=== PATIENT | male | born 1945 | race Caucasian/White ===

== ENCOUNTER 2019-03-26 11:53 | Observation (INO) | payer MEDICARE, OTHER ==
[2019-03-26] MEDS ORDERED: IPRATROPIUM/ALBUTEROL 0.5-2.5 MG/3 ML AMPUL NEB ONE (12:17)
--- NOTE | 2019-03-26 12:22 | ER Document Report ---
ED Medical Screen (RME) - General Chief Complaint: Productive Cough Stated Complaint: DIFFICULTY BREATHING Time Seen by Provider: 03/26/19 12:12 Mode of Arrival: Ambulatory Information source: Patient TRAVEL OUTSIDE OF THE [place] IN LAST 30 DAYS: No - HPI Patient complains to provider of: JOSELUIS Notes: 03/26/19 12:20 Patient here with complaints of shortness of breath. Patient has a history of COPD. He is not on home oxygen. Her last several days he has had a cough and been feeling more short of breath. He was noted to be hypoxic with home health today. He denies any chest pain. No fever. Exam No distress, nontoxic-appearing. Coarse breath sounds with wheezing noted. Heart sounds normal. Plan CBC, CMP, troponin, BNP, EKG, chest x-ray, DuoNeb's. Patient was noted to be hypoxic in the mid 80s on room air in triage, he was placed on 2 L nasal cannula was noted to improve to the mid 90s. An initial examination was made on the patient as part of the triage process, and it was determined a more comprehensive evaluation was necessary. Initial labs were ordered and patient was transferred to another provider in the ED who assumed care and finished evaluation and plan. - Related Data Allergies/Adverse Reactions: No Known Allergies Allergy (Verified 03/26/19 11:53) Physical Exam - Vital signs Vitals: Temp Pulse Resp BP Pulse Ox 98.5 F 79 16 138/56 H 91 L 03/26/19 11:59 03/26/19 11:59 03/26/19 11:59 03/26/19 11:59 03/26/19 11:59 Course - Vital Signs Vital signs: Temp Pulse Resp BP Pulse Ox 98.5 F 79 16 138/56 H 91 L 03/26/19 11:59 03/26/19 11:59 03/26/19 11:59 03/26/19 11:59 03/26/19 11:59
--- NOTE | 2019-03-26 12:44 | RADIOLOGY REPORT (SQ) ---
EXAM DESCRIPTION: CHEST 2 VIEWS COMPLETED DATE/TIME: 03/26/2019 12:31 pm REASON FOR STUDY: SOB, COUGH COMPARISON: None. NUMBER OF VIEWS: Two view. TECHNIQUE: Frontal and lateral radiographic views of the chest acquired. LIMITATIONS: None. FINDINGS: LUNGS AND PLEURA: Chronic interstitial changes. No focal infiltrates, masses or pneumotho rax. No pleural effusion. Attenuated blood vessels and flattened tutu-diaphragms. MEDIASTINUM AND HILAR STRUCTURES: No masses. No contour abnormalities. HEART AND VASCULAR STRUCTURES: Heart normal in size and contour. No evidence for failure. BONES: No acute findings. Degenerative changes in the spine. HARDWARE: None in the chest. OTHER: No other significant finding. IMPRESSION: COPD. CHRONIC SCARRING. NO ACUTE RADIOGRAPHIC FINDING IN THE CHEST. TECHNICAL DOCUMENTATION: JOB ID: [id number] [employer]- All Rights Reserved Reading location - IP/workstation name: [email or web address]
[2019-03-26 13:14] LABS: HEMATOCRIT 36.1 % (37.9-51.0); HEMOGLOBIN 12.2 g/dL (13.5-17.0); MEAN CORPUSCULAR VOLUME 86 fl (80-97); WHITE BLOOD COUNT 8.8 10^3/uL (4.0-10.5)
[2019-03-26 13:15] LABS: ABSOLUTE BASOPHILS # (AUTO) 0.1 10^3/uL (0.0-0.2); ABSOLUTE EOSINOPHILS # (AUTO) 0.1 10^3/uL (0.0-0.6); ABSOLUTE LYMPHOCYTES (AUTO) 1.6 10^3/uL (0.5-4.7); ABSOLUTE MONOCYTES (AUTO) 0.8 10^3/uL (0.1-1.4); ABSOLUTE NEUT (AUTO) 6.2 10^3/uL (1.7-8.2); EOSINOPHILS % (AUTO) 1.2 % (0-6); LYMPHOCYTES % (AUTO) 18.5 % (13-45); MEAN CORPUSCULAR HGB CONC 33.7 g/dL (32.0-36.0); PLATELET COUNT 216 10^3/uL (150-450); RED CELL DISTRIBUTION WIDTH 13.7 % (11.5-14.0); SEGMENTED NEUTROPHILS % (AUTO) 70.3 % (42-78); TOTAL CELLS COUNTED % (AUTO) 100 %
[2019-03-26 13:32] LABS: ALANINE AMINOTRANSFERASE 25 U/L (21-72); ALBUMIN 3.7 g/dL (3.5-5.0); ALKALINE PHOSPHATASE 98 U/L (38-126); ANION GAP 9 (5-19); ASPARTATE AMINO TRANSFERASE 19 U/L (17-59); BILIRUBIN,DIRECT 0.3 mg/dL (0.0-0.4); BILIRUBIN,TOTAL 0.4 mg/dL (0.2-1.3); BLOOD UREA NITROGEN 14 mg/dL (7-20); CALCIUM 9.3 mg/dL (8.4-10.2); CARBON DIOXIDE 32 mmol/L (22-30); CHLORIDE 100 mmol/L (98-107); POTASSIUM 4.1 mmol/L (3.6-5.0); SODIUM 140.7 mmol/L (137-145); TOTAL PROTEIN 7.5 g/dL (6.3-8.2)
[2019-03-26 13:39] LABS: GLUCOSE 66 mg/dL (75-110)
[2019-03-26 13:44] LABS: NT PRO BNP 46 pg/mL (5-900)
[2019-03-26 13:45] LABS: TROPONIN I < 0.012 ng/mL
[2019-03-26] MEDS ORDERED: DEXAMETHASONE 4 MG TABLET PO ONE (15:34)
--- NOTE | 2019-03-26 15:42 | ER Document Report ---
ED Respiratory Problem - General Chief Complaint: Productive Cough Stated Complaint: DIFFICULTY BREATHING Time Seen by Provider: 03/26/19 12:12 Mode of Arrival: Ambulatory Information source: Patient, Relative Notes: 73-year-old male with past medical history as recorded presents today with the onset according to of 2 to 3 days of runny nose, congestion, cough, with whitish phlegm without fevers. No chest pain. No calf pain or leg swelling. History of COPD. No oxygenation required at home. Room air oxygen saturation upon arrival was 89-90. Patient was given a duo nebulizer in triage without steroids. TRAVEL OUTSIDE OF THE [place] IN LAST 30 DAYS: No - Related Data Allergies/Adverse Reactions: No Known Allergies Allergy (Verified 03/26/19 11:53) Past Medical History - General Information source: Patient - Social History Smoking Status: Never Smoker Chew tobacco use (# tins/day): No Frequency of alcohol use: None Drug Abuse: None Family History: CAD Patient has suicidal ideation: No Patient has homicidal ideation: No - Past Medical History Cardiac Medical History: Reports: Hx Hypertension Pulmonary Medical History: Reports: Hx COPD, Hx Pneumonia Endocrine Medical History: Reports: Hx Diabetes Mellitus Type 2 Renal/ Medical History: Denies: Hx Peritoneal Dialysis Review of Systems - Review of Systems Constitutional: denies: Fever EENT: Nose congestion. denies: Eye discharge, Nose discharge Cardiovascular: denies: Chest pain, Palpitations Respiratory: Cough, Short of breath, Wheezing Gastrointestinal: denies: Vomiting Genitourinary: denies: Dysuria Musculoskeletal: denies: Leg swelling Skin: Other - no hives. denies: Rash Neurological/Psychological: Other - no slurred speech -: Yes All other systems reviewed and negative Physical Exam - Vital signs Vitals: Temp Pulse Resp BP Pulse Ox 98.5 F 79 16 138/56 H 91 L 03/26/19 11:59 03/26/19 11:59 03/26/19 11:59 03/26/19 11:59 03/26/19 11:59 Notes: Reviewed vital signs and nursing note as charted by RN. CONSTITUTIONAL: Alert; confused at baseline; does follow commands appropriately HEAD: Normocephalic; atraumatic EYES: PERRL; Conjunctivae clear, sclerae non-icteric ENT: Normal nose; bilateral nonpurulent nasal rhinorrhea; moist mucous membranes; pharynx without lesions noted NECK: Supple without meningismus; non-tender; no cervical lymphadenopathy, no masses CARD: Regular rate and rhythm; no murmurs; symmetric distal pulses RESP: Normal chest excursion without splinting or tachypnea; breath sounds clear and equal bilaterally; bilateral end expiratory wheezing with scattered rhonchi without rales ABD/GI: Normal bowel sounds; non-distended; soft, non-tender BACK: The back appears normal and is non-tender to palpation EXT: Normal ROM in all joints; non-tender to palpation; no edema SKIN: No acute lesions noted NEURO: CN 2-12 intact; 5/5 bilateral upper and lower extremity strength with sensation intact to light touch PSYCH: The patient's mood and manner are appropriate. Grooming and personal hygiene are appropriate. Course - Re-evaluation Re-evalutation: Given the above history and physical examination, we will proceed with basic labs, x-ray of the chest, EKG, troponin, and reassess. Patient has no calf pain or leg swelling. Afebrile upon arrival. Low oxygenation in triage. Not on oxygen at home. 03/26/19 15:39 Labs as recorded. X-ray shows no obvious pneumonia. Wheezing is still present but improved. I will provide a one-time dose of Decadron and repeat the duo nebulizer. Normal troponin and BNP. Given that the patient is not on oxygen at home, I will admit the patient for further evaluation and treatment, to make sure that the patient is stabilized before discharge. I will hold on antibiotics at this moment. - Vital Signs Vital signs: Temp Pulse Resp BP Pulse Ox 98.5 F 79 16 138/56 H 91 L 03/26/19 11:59 03/26/19 11:59 03/26/19 11:59 03/26/19 11:59 03/26/19 11:59 - Laboratory Result Diagrams: 03/26/19 12:50 03/26/19 12:50 Laboratory results interpreted by me: 03/26/19 03/26/19 03/26/19 12:50 12:50 13:58 RBC 4.20 L Hgb 12.2 L Hct 36.1 L Carbon Dioxide 32 H Glucose 66 L POC Glucose 145 H Discharge - Discharge Clinical Impression: Wheezing, Cough, Hypoxia Condition: Fair Disposition: ADMITTED OBSERVATION Admitting Provider: Mikayla (Hospitalist) Unit Admitted: Telemetry
[2019-03-26] MEDS ORDERED: IPRATROPIUM/ALBUTEROL 0.5-2.5 MG/3 ML AMPUL NEB SCH ×2 (15:45)
[2019-03-26 16:38] LABS: ARTERIAL BLOOD BASE EXCESS 5.6 mmol/L; ARTERIAL BLOOD FIO2 2L; ARTERIAL BLOOD H2CO3 1.49 mmol/L (1.05-1.35); ARTERIAL BLOOD HCO3 31.2 mmol/L (20-24); ARTERIAL BLOOD O2 SATURATION 94.3 % (94-98); ARTERIAL BLOOD PCO2 49.4 mmHg (35-45); ARTERIAL BLOOD PH 7.42 (7.35-7.45); ARTERIAL BLOOD PO2 70.8 mmHg (80-100); ARTERIAL BLOOD TOTAL CO2 32.7 mmol/L (23-27)
--- NOTE | 2019-03-26 16:39 | PDOC H&P ---
History of Present Illness Admission Date/PCP: 03/26/19 15:52 ALLISON SINGH MD Patient complains of: SOB, cough History of Present Illness: MARIANA BHAT is a 73 year old male with a PMH of COPD not on home O2, Lewy body dementia and HTN who was brought in due to increasing SOb, productive cough and wheezing. is on bedside and she says he has been having progressive SOB since Monday associated with increaisngly productive cough with yellowish-brownish sputum. Hew was also noted to be more wheezy at home. In the ER, he was hypoxic at 89% on room air and had significant bilateral wheezes. He says he feels better after the breathing treatments and decadron. He is only oriented to person. Past Medical History Cardiac Medical History: Reports: Hypertension Pulmonary Medical History: Reports: Chronic Obstructive Pulmonary Disease (COPD), Pneumonia Endocrine Medical History: Reports: Diabetes Mellitus Type 2 Social History Smoking Status: Never Smoker Family History Family History: CAD Parental Family History Reviewed: Yes - no premature CAD Children Family History Reviewed: No Sibling(s) Family History Reviewed.: No Medication/Allergy Allergies/Adverse Reactions: No Known Allergies Allergy (Verified 03/26/19 11:53) Review of Systems All systems: reviewed and no additional remarkable complaints except as stated - as mentioned in HPI Physical Exam Vital Signs: Temp Pulse Resp BP Pulse Ox 98.5 F 79 16 138/56 H 91 L 03/26/19 11:59 03/26/19 11:59 03/26/19 11:59 03/26/19 11:59 03/26/19 11:59 Intake & Output 03/25/19 03/26/19 03/27/19 06:59 06:59 06:59 Weight 189 lb General appearance: PRESENT: mild distress Head exam: PRESENT: atraumatic, normocephalic Eye exam: PRESENT: conjunctiva pink, EOMI, PERRLA. ABSENT: scleral icterus Ear exam: PRESENT: normal external ear exam Mouth exam: PRESENT: moist, tongue midline Neck exam: ABSENT: carotid bruit, JVD, lymphadenopathy, thyromegaly Respiratory exam: PRESENT: rhonchi, wheezes. ABSENT: rales Cardiovascular exam: PRESENT: RRR. ABSENT: diastolic murmur, rubs, systolic murmur Pulses: PRESENT: normal dorsalis pedis pul GI/Abdominal exam: PRESENT: normal bowel sounds, soft. ABSENT: distended, guarding, mass, organolmegaly, rebound, tenderness Rectal exam: PRESENT: deferred Neurological exam: PRESENT: alert, awake, oriented to person, CN II-XII grossly intact. ABSENT: oriented to place, oriented to time, motor sensory deficit Results Laboratory Results: 03/26/19 12:50 03/26/19 12:50 03/26/19 03/26/19 12:50 12:50 WBC 8.8 RBC 4.20 L Hgb 12.2 L Hct 36.1 L MCV 86 MCH 29.0 MCHC 33.7 RDW 13.7 Plt Count 216 Seg Neutrophils % 70.3 Lymphocytes % 18.5 Monocytes % 9.0 Eosinophils % 1.2 Basophils % 1.0 Absolute Neutrophils 6.2 Absolute Lymphocytes 1.6 Absolute Monocytes 0.8 Absolute Eosinophils 0.1 Absolute Basophils 0.1 Sodium 140.7 Potassium 4.1 Chloride 100 Carbon Dioxide 32 H Anion Gap 9 BUN 14 Creatinine 0.77 Est GFR ( Amer) > 60 Est GFR (Non-Af Amer) > 60 Glucose 66 L Calcium 9.3 Total Bilirubin 0.4 AST 19 ALT 25 Alkaline Phosphatase 98 Total Protein 7.5 Albumin 3.7 03/26/19 12:50 Troponin I < 0.012 NT-Pro-B Natriuret Pep 46 Impressions: Chest X-Ray 03/26/19 12:17 IMPRESSION: COPD. CHRONIC SCARRING. NO ACUTE RADIOGRAPHIC FINDING IN THE CHEST. Assessment and Plan - Diagnosis (1) Acute respiratory failure with hypoxia Is this a current diagnosis for this admission?: Yes Plan: Currently saturating well on 2 lpm via NC. ABG pending. (2) COPD exacerbation Is this a current diagnosis for this admission?: Yes Plan: Start solumedrol and scheduled breathing treatments. (3) Lewy body dementia Is this a current diagnosis for this admission?: Yes Plan: Will resume home meds prescribed by his neurologist once verified by pharmacy. - Time Time Spent with patient: 25-34 minutes
--- NOTE | 2019-03-26 16:45 | ADVANCED CARE ---
- Diagnosis (1) Acute respiratory failure with hypoxia Diagnosis Current: Yes (2) COPD exacerbation Diagnosis Current: Yes (3) Lewy body dementia Diagnosis Current: Yes Attendance: Patient is only oriented x 1. is on bedside. She says patient has advanced directive and he is a DNR/DNI. She does say patient's brother, Eladio is technically the DPOA as they decided to make him the DPOA when she got really sick a few months ago. Resuscitation Status: Do Not Resuscitate
[2019-03-26] MEDS ORDERED: LIDOCAINE 5% OINTMENT 35.44 GM TOP PRN (18:20)
[2019-03-26] MEDS: IPRATROPIUM/ALBUTEROL 0.5-2.5 MG/3 ML AMPUL NEB SCH ×2 (20:06→23:30)
[2019-03-26] MEDS ORDERED: (PENDING PHARMACY ID) (Clonazepam [Klonopin] 0.5 MG) PO SCH (22:00)
[2019-03-26] MEDS: HALOPERIDOL LACTATE INJ 5 MG/1 ML VIAL IV PRN (23:08)
[2019-03-26] MEDS: HEPARIN SOD (PORCINE) 5,000 UNIT/ML 1 ML SYRINGE SUBCUT SCH (23:09)
[2019-03-26] MEDS: METHYLPREDNISOLONE INJ 40 MG/1 ML SDV IV SCH (23:09)
[2019-03-26] MEDS: CLONAZEPAM 1 MG TABLET PO SCH (23:10)
[2019-03-27] MEDS: IPRATROPIUM/ALBUTEROL 0.5-2.5 MG/3 ML AMPUL NEB SCH ×6 (04:26→23:28)
[2019-03-27] MEDS ORDERED: (PENDING PHARMACY ID) (Donepezil Hcl [Aricept] 10 MG) PO SCH (08:00)
[2019-03-27] MEDS ORDERED: CEFTRIAXONE 1 GM/D5W RTU 1 GM/50 ML RTUPB IV SCH (10:00)
[2019-03-27] MEDS ORDERED: AMLODIPINE BESYLATE 5 MG TABLET PO SCH (10:00)
[2019-03-27] MEDS: METHYLPREDNISOLONE INJ 40 MG/1 ML SDV IV SCH (10:06)
[2019-03-27] MEDS: CITALOPRAM HYDROBROMIDE 20 MG TABLET PO SCH (10:07)
[2019-03-27] MEDS: DONEPEZIL HCL 5 MG TABLET PO SCH (10:07)
[2019-03-27] MEDS: MEMANTINE HCL 10 MG TABLET PO SCH ×2 (10:07→18:29)
[2019-03-27] MEDS: RISPERIDONE 1 MG TABLET PO SCH ×2 (10:08→22:12)
[2019-03-27] MEDS: CEFTRIAXONE SODIUM 1,000 MG in DEXTROSE 5%-WATER 50 ML IV SCH (10:08)
[2019-03-27] MEDS: HEPARIN SOD (PORCINE) 5,000 UNIT/ML 1 ML SYRINGE SUBCUT SCH ×2 (10:09→22:11)
--- NOTE | 2019-03-27 10:26 | EKG REPORT ---
SEVERITY:- ABNORMAL ECG - SINUS RHYTHM RIGHT BUNDLE BRANCH BLOCK PROBABLE ANTEROSEPTAL INFARCT, AGE INDETERM : Confirmed by: Nellie Machado 27-Mar-2019 10:26:43
[2019-03-27] MEDS: HALOPERIDOL LACTATE INJ 5 MG/1 ML VIAL IV PRN (16:19)
--- NOTE | 2019-03-27 17:24 | PDOC PROGRESS REPORT ---
Subjective Progress Note for:: 03/27/19 Subjective:: MARIANA BHAT is a 73 year old male with a PMH of COPD not on home O2, Lewy body dementia and HTN who was brought in due to increasing SOB, productive cough and wheezing. In the ER, he was hypoxic at 89% on room air and had significant bilateral wheezes. He was admitted for COPD exacerbation. No acute event overnight. This morning, he says his shortness of breath has improved. He has bilateral wheezing but these have improved from yesterday. Reason For Visit: COPD EXACERBATION Physical Exam Vital Signs: Temp Pulse Resp BP Pulse Ox 97.2 F 90 18 96/39 L 90 L 03/27/19 10:56 03/27/19 15:30 03/27/19 15:30 03/27/19 10:56 03/27/19 15:30 Intake & Output 03/26/19 03/27/19 03/28/19 06:59 06:59 06:59 Intake Total 240 50 Balance 240 50 Weight 188 lb 14.978 oz General appearance: PRESENT: no acute distress, well-developed, well-nourished Head exam: PRESENT: atraumatic, normocephalic Eye exam: PRESENT: conjunctiva pink, EOMI, PERRLA. ABSENT: scleral icterus Ear exam: PRESENT: normal external ear exam Mouth exam: PRESENT: moist, tongue midline Neck exam: ABSENT: carotid bruit, JVD, lymphadenopathy, thyromegaly Respiratory exam: PRESENT: rhonchi, wheezes. ABSENT: rales Cardiovascular exam: PRESENT: RRR. ABSENT: diastolic murmur, rubs, systolic murmur GI/Abdominal exam: PRESENT: normal bowel sounds, soft. ABSENT: distended, guarding, mass, organolmegaly, rebound, tenderness Rectal exam: PRESENT: deferred Neurological exam: PRESENT: alert, awake, oriented to person, oriented to place, oriented to time, oriented to situation, CN II-XII grossly intact. ABSENT: motor sensory deficit Results Laboratory Results: 03/26/19 12:50 03/26/19 12:50 03/26/19 12:50 Troponin I < 0.012 NT-Pro-B Natriuret Pep 46 Impressions: Chest X-Ray 03/26/19 12:17 IMPRESSION: COPD. CHRONIC SCARRING. NO ACUTE RADIOGRAPHIC FINDING IN THE CHEST. Assessment and Plan - Diagnosis (1) Acute respiratory failure with hypoxia Is this a current diagnosis for this admission?: Yes Plan: Currently saturating well on 2 lpm via NC. (2) COPD exacerbation Is this a current diagnosis for this admission?: Yes Plan: Improving. We will switch Solu-Medrol to prednisone later today if he continues to do better. (3) Lewy body dementia Is this a current diagnosis for this admission?: Yes Plan: Home meds resumed. - Time Time Spent with patient: 15-24 minutes
[2019-03-27] MEDS: PREDNISONE 20 MG TABLET PO SCH (18:29)
[2019-03-27] MEDS: CLONAZEPAM 1 MG TABLET PO SCH (22:12)
[2019-03-28] MEDS: IPRATROPIUM/ALBUTEROL 0.5-2.5 MG/3 ML AMPUL NEB SCH ×4 (04:50→15:58)
[2019-03-28] MEDS: MEMANTINE HCL 10 MG TABLET PO SCH (11:30)
[2019-03-28] MEDS: PREDNISONE 20 MG TABLET PO SCH (11:30)
[2019-03-28] MEDS: CITALOPRAM HYDROBROMIDE 20 MG TABLET PO SCH (11:30)
[2019-03-28] MEDS: DONEPEZIL HCL 5 MG TABLET PO SCH (11:30)
[2019-03-28] MEDS: CEFTRIAXONE SODIUM 1,000 MG in DEXTROSE 5%-WATER 50 ML IV SCH (11:33)
[2019-03-28] MEDS: RISPERIDONE 1 MG TABLET PO SCH (11:33)
[2019-03-28] MEDS: HEPARIN SOD (PORCINE) 5,000 UNIT/ML 1 ML SYRINGE SUBCUT SCH (11:41)
[2019-03-28 14:21] VITALS: BP 127/55
--- NOTE | 2019-03-29 17:49 | PDOC DISCHARGE SUMMARY ---
General - Admit/Disc Date/PCP Admission Date/Primary Care Provider: 03/26/19 15:52 ALLISON SINGH MD Discharge Date: 03/28/19 - Discharge Diagnosis (1) Acute respiratory failure with hypoxia Is this a current diagnosis for this admission?: Yes (2) COPD exacerbation Is this a current diagnosis for this admission?: Yes (3) Lewy body dementia Is this a current diagnosis for this admission?: Yes - Additional Information Resuscitation Status: Full Code Discharge Diet: As Tolerated Discharge Activity: Activity As Tolerated Prescriptions: Prednisone [Deltasone 20 mg Tablet] 20 mg PO BID 5 Days #10 tablet Tiotropium [place] [Spiriva Handihaler 5 Cap/Kit (18 Mcg/Cap)] 1 cap IH DAILY #30 capsule Home Medications: Albuterol Sulfate [Proair HFA Inhalation Aerosol 8.5 gm MDI] 2 puff IH Q6HP PRN 03/26/19 Amlodipine Besylate [Norvasc 5 mg Tablet] 5 mg PO DAILY 03/26/19 Cetirizine HCl [Zyrtec 10 mg Tablet] 10 mg PO DAILY 03/26/19 Citalopram Hydrobromide [Celexa 20 mg Tablet] 20 mg PO DAILY 03/26/19 Clonazepam [Klonopin] 0.5 mg PO QHS 03/26/19 Donepezil HCl [Aricept] 10 mg PO QAM 03/26/19 Fluticasone/Salmeterol [Advair 250-50 Diskus 14 Dose/Diskus] 1 puff IH Q12 03/26/19 Ibuprofen [Ibuprofen Ib] 200 mg PO Q6HP PRN 03/26/19 Lidocaine HCl [Xylocaine 5% Ointment 35.44 gm] 1 applic TOP DAILYP PRN 03/26/19 Memantine HCl [Namenda 10 mg Tablet] 10 mg PO BID 03/26/19 Metformin HCl [Glucophage 500 mg Tablet] 500 mg PO BID 03/26/19 Montelukast Sodium [Singulair 10 mg Tablet] 10 mg PO DAILY 03/26/19 Risperidone [Risperdal 1 mg Tablet] 1 mg PO BID 03/26/19 Tamsulosin HCl [Flomax 0.4 mg Cap.sr] 0.4 mg PO DAILY 03/26/19 Telmisartan [Micardis 40 mg Tablet] 40 mg PO DAILY 03/26/19 Triamcinolone Acetonide [Aristocort 0.1% Cream] 1 applic TOP BID 03/26/19 Vitamin B Complex [Super B-50 Complex] 1 cap PO DAILY 03/26/19 Prednisone [Deltasone 20 mg Tablet] 20 mg PO BID 5 Days #10 tablet 03/28/19 Tiotropium [place] [Spiriva Handihaler 5 Cap/Kit (18 Mcg/Cap)] 1 cap IH DAILY #30 capsule 03/28/19 History of Present Illness History of Present Illness: MARIANA BHAT is a 73 year old male with a PMH of COPD not on home O2, Lewy body dementia and HTN who was brought in due to increasing SOb, productive cough and wheezing. is on bedside and she says he has been having progressive SOB since Monday associated with increaisngly productive cough with yellowish-brownish sputum. Hew was also noted to be more wheezy at home. In the ER, he was hypoxic at 89% on room air and had significant bilateral wheezes. He says he feels better after the breathing treatments and decadron. He is only oriented to person. Hospital Course Hospital Course: MARIANA BHAT is a 73 year old male with a PMH of COPD not on home O2, Lewy body dementia and HTN who was brought in due to increasing SOB, productive cough and wheezing. In the ER, he was hypoxic at 89% on room air and had significant bilateral wheezes. He was admitted for COPD exacerbation. He was started on IV steroids, antibiotics and breathing treatments. He significantly improved with above treatment and eventually returned to his baseline. He did not qualify for home O2. He will be discharged on 5 more days of prednisone. He is already on Advair at home. He will be started on Spiriva as well. Physical Exam Vital Signs: Temp Pulse Resp BP Pulse Ox 98.4 F 68 20 127/55 H 88 L 03/28/19 16:42 03/28/19 16:42 03/28/19 16:42 03/28/19 16:42 03/28/19 16:42 Intake & Output 03/28/19 03/29/19 03/30/19 06:59 06:59 06:59 Intake Total 727 Balance 727 Weight 188 lb 14.978 oz General appearance: PRESENT: no acute distress, well-developed, well-nourished Head exam: PRESENT: atraumatic, normocephalic Eye exam: PRESENT: conjunctiva pink, EOMI, PERRLA. ABSENT: scleral icterus Ear exam: PRESENT: normal external ear exam Mouth exam: PRESENT: moist, tongue midline Neck exam: ABSENT: carotid bruit, JVD, lymphadenopathy, thyromegaly Respiratory exam: PRESENT: clear to auscultation linda. ABSENT: rales, rhonchi, wheezes Cardiovascular exam: PRESENT: RRR. ABSENT: diastolic murmur, rubs, systolic murmur Pulses: PRESENT: normal dorsalis pedis pul GI/Abdominal exam: PRESENT: normal bowel sounds, soft. ABSENT: distended, guarding, mass, organolmegaly, rebound, tenderness Rectal exam: PRESENT: deferred Neurological exam: PRESENT: oriented to person, CN II-XII grossly intact. ABSENT: motor sensory deficit Results Laboratory Results: 03/26/19 12:50 03/26/19 12:50 03/26/19 17:21 Blood Blood Culture - Final Corynebacterium Species 03/26/19 12:50 Troponin I < 0.012 NT-Pro-B Natriuret Pep 46 Impressions: Chest X-Ray 03/26/19 12:17 IMPRESSION: COPD. CHRONIC SCARRING. NO ACUTE RADIOGRAPHIC FINDING IN THE CHEST. Qualifiers - * PATIENT BEING DISCHARGED WITH ANY OF THE FOLLOWING DIAGNOSIS: No Acute Heart Failure Is this a Heart Failure Patient?: No
== END 2019-03-28 18:11 | disposition home health service (06) ==
LOC: ER 11:53 → EH 15:52 → 5 18:57
PROVIDERS: ADMIT Internal Medicine; ATTEND Internal Medicine
DX: J96.01 Acute respiratory failure with hypoxia (principal); J44.1 Chronic obstructive pulmonary disease with (acute) exacerbation; G31.83 Neurocognitive disorder with Lewy bodies; F02.80 Dementia in other diseases classified elsewhere, unspecified severity, without behavioral disturbance, psychotic disturbance, mood disturbance, and anxiety; I10 Essential (primary) hypertension; I45.10 Unspecified right bundle-branch block; E11.9 Type 2 diabetes mellitus without complications; Z79.899 Other long term (current) drug therapy; Z82.49 Family history of ischemic heart disease and other diseases of the circulatory system; Z87.01 Personal history of pneumonia (recurrent); J34.89 Other specified disorders of nose and nasal sinuses; Z79.84 Long term (current) use of oral hypoglycemic drugs
CPT/HCPCS: 93005; 94640 ×6; 99285; 36415; 87040; 87070; 87205; 82962; 82803; 85025; 87077; 80053; 84484; 83880; 71046; 93010; J1644 ×2; A9270 ×17; J1630 ×2; J2920 ×2; J0696 ×2; J3490 ×2; J7060 ×2; G0378; J7512; J7620

== ENCOUNTER 2019-06-18 20:54 | Emergency (ER) | payer MEDICARE, OTHER ==
[2019-06-18] MEDS ORDERED: CEFEPIME 2 GM/D5W RTU 2 GM/50 ML RTUPB IV ONE (21:36)
[2019-06-18] MEDS ORDERED: ACETAMINOPHEN 650 MG SUPP.RECT PR ONE (21:36)
--- NOTE | 2019-06-18 21:49 | ER Document Report ---
ED General - General Chief Complaint: Altered Mental Status Stated Complaint: ALTERED MENTAL STATUS Time Seen by Provider: 06/18/19 21:23 Primary Care Provider: ALLISON SIGNH MD [Primary Care Provider] - Follow up as needed TRAVEL OUTSIDE OF THE [place] IN LAST 30 DAYS: No - HPI Notes: Patient is a 73-year-old male with a history of Lewy body dementia, who was brought to the emergency department for evaluation. Patient's son is the primary historian. Evidently he started acting strangely yesterday. Normally he is able to feed himself somewhat. Today he was picking up the cereal and placing it on the napkin. Patient otherwise unable to offer me any sort of meaningful history. Denies any pain. According the son he has been coughing, but he always coughs. He has also had very strong and foul-smelling urine for about a month. Patient is a DNR, verified with both the son and the patient's . - Related Data Allergies/Adverse Reactions: No Known Allergies Allergy (Verified 03/26/19 11:53) Past Medical History - General Information source: Relative - Social History Smoking Status: Former Smoker Frequency of alcohol use: None Drug Abuse: None Family History: CAD Patient has suicidal ideation: No Patient has homicidal ideation: No - Past Medical History Cardiac Medical History: Reports: Hx Hypertension Pulmonary Medical History: Reports: Hx COPD, Hx Pneumonia Neurological Medical History: Reports: Other - Parkinsons Endocrine Medical History: Reports: Hx Diabetes Mellitus Type 2 Renal/ Medical History: Denies: Hx Peritoneal Dialysis - Immunizations Hx Diphtheria, Pertussis, Tetanus Vaccination: Yes Review of Systems - Review of Systems -: Yes ROS unobtainable due to patient's medical condition - Dementia, altered mental status Physical Exam - Vital signs Vitals: Temp Pulse Resp BP Pulse Ox 102.1 F H 96 24 H 111/46 L 98 06/18/19 20:54 06/18/19 20:54 06/18/19 20:54 06/18/19 20:54 06/18/19 20:54 - Notes Notes: This is a frail-appearing 73-year-old male, appears older than his stated age, in a moderate amount of distress. He has BiPAP in place as per nursing order. Is neuropsych and atraumatic. Pupils are equal round, reactive to light. Oral mucosa slightly dry. Heart is regular rate and rhythm, lungs show diminished breath sounds without wheezes, rales, or rhonchi. Abdomen is soft, nontender, normoactive bowel sounds. Patient does have an uncircumcised penis with phimosis. He has pyuria noted at the urethral meatus. Patient is awake but drowsy. Opens eyes to verbal command. He is able to follow directions. He is disoriented to place and time. He moves all 4 extremities spontaneously. Course - Re-evaluation Re-evalutation: 06/18/19 22:09 Patient presents emergency department for evaluation of altered mental status. He does have a baseline dementia. On arrival he is found to be hypoxic, fe brile. His blood pressure is borderline in the 90s. Placed on BiPAP per nursing. I did review his chart, there is no echocardiogram done. Patient's son denies any history of congestive heart failure. IV fluids ordered. Laboratory investigations ordered and pending at this time, other than a he moglobin of 6. Type and cross for 2 units ordered. My suspicion is that the likely source for this patient's sepsis is his urine. Given rectal Tylenol. Nursing was unable to place a Gant catheter, so condom catheter placed. He is given IV cefepime, will continue to monitor. 06/19/19 04:17 Despite condom catheter being in place for some time, patient did not have any urinary output. Multiple attempts were performed, under sterile technique, to place a catheter of any sort. We were unable to do so. Patient continued to have significant discomfort with every attempt to catheterize him. Unfortunately, patient's physicians are at [facility], but they are on diversion. Awaiting phone call from [facility] for possible transfer. 06/19/19 04:58 Chest x-ray revealed pneumonia as well. Again, patient has had no urinary output. Bladder scan does not show significant retention, but despite IV fluids the patient has not had any urinary output. Again unable to place catheter. I spoke with Dr. Murillo, urologist at [facility]. He agrees it is reasonable to transfer the patient for Gant catheter placement. He agrees that this seems an appropriate medicine admission. Again patient has received cefepime for both coverage of pneumonia as well as UTI, will transfer the patient for further care. 06/19/19 05:[address] Rea, internal medicine physician. He accepts the patient, is checking on bed status. - Vital Signs Vital signs: Temp Pulse Resp BP Pulse Ox 97.5 F 96 18 111/66 95 06/19/19 03:01 06/18/19 20:54 06/19/19 04:31 06/19/19 04:31 06/19/19 04:31 - Laboratory Result Diagrams: 06/18/19 22:50 06/18/19 22:50 Laboratory results interpreted by me: 06/18/19 06/18/19 06/18/19 21:41 22:50 22:50 WBC 11.5 H RBC 3.85 L Hgb 11.3 L Hct 33.3 L Seg Neutrophils % 89.4 H Lymphocytes % 5.4 L Absolute Neutrophils 10.3 H PT 29.3 H BUN 21 H Glucose 146 H Calcium 8.1 L AST 14 L Total Protein 6.1 L Albumin 3.3 L - Diagnostic Test Radiology reviewed: Reports reviewed Radiology results interpreted by me: 06/19/19 04:57 Chest X-Ray 06/18/19 21:03 IMPRESSION: Left basilar pleural effusion and/or infiltrate and/or atelectasis. Findings are suspicious for pneumonia. Possible emphysema. copyright 2010 [employer]- All Rights Reserved - EKG Interpretation by Me Additional EKG results interpreted by me: 06/19/19 05:07 Sinus mechanism with rate of 95 bpm. Normal axis. Right bundle branch block. Discharge - Discharge Clinical Impression: Pyuria Sepsis Qualifiers: Sepsis acute organ dysfunction status: unspecified Pneumonia Qualifiers: Laterality: left Lung location: lower lobe of lung Condition: Stable Disposition: [facility] Referrals: ALLISON SINGH MD [Primary Care Provider] - Follow up as needed
[2019-06-18] MEDS: NORMAL SALINE 1000 ML 1,000 ML IV PRN ×2 (21:51→23:34)
[2019-06-18 21:56] LABS: VENOUS BLOOD BASE EXCESS -0.1 mmol/L; VENOUS BLOOD HCO3 24.7 mmol/L (20-32); VENOUS BLOOD PCO2 40.9 mmHg (35-63); VENOUS BLOOD PH 7.4 (7.30-7.42)
[2019-06-18 22:04] LABS: INTERNATIONAL RATION (INR) 2.71; PROTHROMBIN TIME 29.3 SEC (11.4-15.4)
--- NOTE | 2019-06-18 22:40 | RADIOLOGY REPORT (SQ) ---
EXAM DESCRIPTION: XR CHEST 1 VIEW COMPLETED DATE/TME: 06/18/2019 21:03 CLINICAL HISTORY: 73 years, Male, difficulty breathing COMPARISON: None. NUMBER OF VIEWS: TECHNIQUE: LIMITATIONS: None. FINDINGS: There is increased opacity at the left lung base, compatible with pleural effusion and/or infiltrate and/or atelectasis. There is possible emphysema. The heart is normal in size. No evidence of heart failure. There is tortuosity of the thoracic aorta. IMPRESSION: Left basilar pleural effusion and/or infiltrate and/or atelectasis. Findings are suspicious for pneumonia. Possible emphysema. copyright 2010 [employer]- All Rights Reserved
[2019-06-18 23:06] LABS: ABSOLUTE BASOPHILS # (AUTO) 0.1 10^3/uL (0.0-0.2); ABSOLUTE LYMPHOCYTES (AUTO) 0.6 10^3/uL (0.5-4.7); ABSOLUTE MONOCYTES (AUTO) 0.5 10^3/uL (0.1-1.4); ABSOLUTE NEUT (AUTO) 10.3 10^3/uL (1.7-8.2); BASOPHILS % (AUTO) 0.6 % (0-2); EOSINOPHILS % (AUTO) 0.1 % (0-6); HEMATOCRIT 33.3 % (37.9-51.0); HEMOGLOBIN 11.3 g/dL (13.5-17.0); LYMPHOCYTES % (AUTO) 5.4 % (13-45); MEAN CORPUSCULAR HEMOGLOBIN 29.4 pg (27.0-33.4); MEAN CORPUSCULAR VOLUME 86 fl (80-97); MONOCYTES % (AUTO) 4.5 % (3-13); PLATELET COUNT 160 10^3/uL (150-450); RED BLOOD COUNT 3.85 10^6/uL (4.35-5.55); RED CELL DISTRIBUTION WIDTH 13.6 % (11.5-14.0); SEGMENTED NEUTROPHILS % (AUTO) 89.4 % (42-78); TOTAL CELLS COUNTED % (AUTO) 100 %; WHITE BLOOD COUNT 11.5 10^3/uL (4.0-10.5)
[2019-06-18 23:29] LABS: ALBUMIN 3.3 g/dL (3.5-5.0); ALKALINE PHOSPHATASE 81 U/L (38-126); ANION GAP 11 (5-19); ASPARTATE AMINO TRANSFERASE 14 U/L (17-59); BILIRUBIN,DIRECT 0.4 mg/dL (0.0-0.4); BLOOD UREA NITROGEN 21 mg/dL (7-20); CALCIUM 8.1 mg/dL (8.4-10.2); CARBON DIOXIDE 23 mmol/L (22-30); CHLORIDE 105 mmol/L (98-107); GLUCOSE 146 mg/dL (75-110); POTASSIUM 3.7 mmol/L (3.6-5.0); TOTAL PROTEIN 6.1 g/dL (6.3-8.2)
[2019-06-19] MEDS ORDERED: NORMAL SALINE 1000 ML 1,000 ML IV ONE (01:26)
[2019-06-19] MEDS ORDERED: LIDOCAINE 2% URO-JET 5 ML KIT MM ONE (02:05)
[2019-06-19 10:09] VITALS: BP 151/69
--- NOTE | 2019-06-19 14:39 | EKG REPORT ---
SEVERITY:- ABNORMAL ECG - SINUS RHYTHM RBBB AND LAFB : Confirmed by: Nellie Machado 19-Jun-2019 14:38:37
== END 2019-06-19 10:16 | disposition short-term general hospital (02) ==
LOC: ER 20:54
DX: A41.9 Sepsis, unspecified organism (principal); J18.9 Pneumonia, unspecified organism; J44.0 Chronic obstructive pulmonary disease with (acute) lower respiratory infection; N39.0 Urinary tract infection, site not specified; R05 Cough; I10 Essential (primary) hypertension; E11.9 Type 2 diabetes mellitus without complications; N47.1 Phimosis; G20 Parkinson's disease; F02.80 Dementia in other diseases classified elsewhere, unspecified severity, without behavioral disturbance, psychotic disturbance, mood disturbance, and anxiety; Z87.891 Personal history of nicotine dependence; Z66 Do not resuscitate
CPT/HCPCS: 93005; 99285; 96361; 51702; 96365; 96366; 86900; 86901; 36415; 87040; 86850; 85025; 85610; 80053; 82803; 83605; 71045; 93010; 94660 ×2; C1758 ×2; A9270 ×2; J7030 ×2; J0692; J3490